=== PATIENT | female | born 2000 | race Caucasian/White ===

== ENCOUNTER 2023-04-19 21:03 | Emergency (ER) | payer OTHER ==
[2023-04-19 21:12] VITALS: BP 138/62; PULSE 98; RESP 18; TEMP 98.1; BMI 31.2
[2023-04-19] MEDS ORDERED: ACETAMINOPHEN 325 MG TABLET (FP) PO ONE (21:27)
[2023-04-19] MEDS ORDERED: SODIUM CHLORIDE 0.9% 500 ML INFUS.BAG IV ONE (21:28)
== END 2023-04-19 21:25 | disposition left against medical advice (07) ==
LOC: JER 21:03
DX: R10.32 Left lower quadrant pain (principal)
CPT/HCPCS: 99283-25

== ENCOUNTER 2023-04-19 23:06 | Emergency (ER) | payer OTHER ==
[2023-04-19 23:16] VITALS: BP 116/68; PULSE 89; RESP 18; TEMP 98.2; BMI 31.0
[2023-04-19] MEDS ORDERED: ACETAMINOPHEN 325 MG TABLET (FP) PO ONE (23:32)
[2023-04-19] MEDS ORDERED: ACETAMINOPHEN 325 MG TABLET (FP) ONE (23:38)
[2023-04-20] MEDS ORDERED: ACETAMINOPHEN 650 MG/20.3 ML ORAL SOLUTION (CUPS) PO ONE (00:38)
[2023-04-20] MEDS ORDERED: ACETAMINOPHEN 650 MG/20.3 ML ORAL SOLUTION (CUPS) ONE (00:40)
[2023-04-20 00:46] LABS: BASO % 0.7 % (0-2.0); EOS % 1.9 % (0-4.5); HEMATOCRIT 45.7 % (32.4-45.2); HEMOGLOBIN 15.4 GM/dL (10.7-15.3); LYMPH % 36.1 % (8-40); MCH 31.7 pg (25.7-33.7); MCHC 33.8 g/dl (32.0-36.0); MEAN CELL VOLUME 93.9 fl (80-96); MEAN PLT VOLUME 9.2 fl (7.5-11.1); MONO % 5.1 % (3.8-10.2); NEUT % 56.2 % (42.8-82.8); PLATELET COUNT 246 10^3/uL (134-434); RBC 4.86 M/mm3 (3.60-5.2); RDW 13.3 % (11.6-15.6); WHITE BLOOD COUNT 11.2 K/mm3 (4.0-10.0)
[2023-04-20 00:50] LABS: EPI CELLS >36 /uL (0-25.1); HYALINE CASTS 3 /uL (0-3.1); URINE APPEARANCE TURBID; URINE BACTERIA 517 /uL (0-1359); URINE BILIRUBIN NEGATIVE (NEGATIVE); URINE COLOR YELLOW; URINE GLUCOSE (UA) NEGATIVE (NEGATIVE); URINE KETONE TRACE (NEGATIVE); URINE LEUK ESTERASE TRACE (NEGATIVE); URINE NITRITE NEGATIVE (NEGATIVE); URINE PROTEIN TRACE (NEGATIVE); URINE WBC 15 /uL (0-25.8)
[2023-04-20] MEDS ORDERED: METOCLOPRAMIDE HCL INJECTION 10 MG/2 ML VIAL IVPUSH ONE (01:04)
[2023-04-20] MEDS ORDERED: LACTATED RINGERS SOLUTION 1000 ML INFUS.BAG IV ONE (01:04)
[2023-04-20] MEDS ORDERED: METOCLOPRAMIDE HCL INJECTION 10 MG/2 ML VIAL ONE (01:14)
[2023-04-20 01:16] LABS: POTASSIUM 4.3 mmol/L (3.5-5.1)
[2023-04-20 01:18] LABS: ALBUMIN 3.9 g/dl (3.4-5.0); BLOOD UREA NITROGEN 10.2 mg/dL (7-18); CALCIUM 9.8 mg/dL (8.5-10.1)
[2023-04-20] MEDS ORDERED: KETOROLAC TROMETHAMINE 15 MG/ML VIAL IVPUSH ONE (01:20)
[2023-04-20 01:22] LABS: CREATININE 0.6 mg/dL (0.55-1.3)
[2023-04-20 01:24] LABS: BILIRUBIN,TOTAL 0.2 mg/dL (0.2-1); TOT PROT 7.4 g/dl (6.4-8.2)
[2023-04-20] MEDS ORDERED: KETOROLAC TROMETHAMINE 15 MG/ML VIAL ONE (01:58)
[2023-04-20 07:44] LABS: URINE RBC PRESENT /uL (0-23.9)
== END 2023-04-20 02:03 | disposition home or self-care (01) ==
LOC: JER 23:06
PROC: 3E033NZ Introduction of Analgesics, Hypnotics, Sedatives into Peripheral Vein, Percutaneous Approach (ICD-10-PCS; principal; 2023-04-20)
PROC: 3E033GC Introduction of Other Therapeutic Substance into Peripheral Vein, Percutaneous Approach (ICD-10-PCS; 2023-04-20)
DX: R10.32 Left lower quadrant pain (principal); N83.202 Unspecified ovarian cyst, left side
CPT/HCPCS: 36415; 76830-TC; 80053; 81003; 84703; 85025; 87086; 99284-25

== ENCOUNTER 2023-11-25 11:44 | Emergency (ER) | payer OTHER ==
[2023-11-25 11:53] VITALS: BP 116/75; PULSE 88; RESP 18; TEMP 97.4; BMI 29.9
[2023-11-25 13:13] LABS: BASO % 0.5 % (0-2.0); EOS % 0.6 % (0-4.5); HEMATOCRIT 43.8 % (32.4-45.2); MCH 32.2 pg (25.7-33.7); MCHC 34.2 g/dl (32.0-36.0); MEAN CELL VOLUME 94.2 fl (80-96); MEAN PLT VOLUME 9.1 fl (7.5-11.1); MONO % 5.3 % (3.8-10.2); NEUT % 69.6 % (42.8-82.8); PLATELET COUNT 265 10^3/uL (134-434); RBC 4.65 M/mm3 (3.60-5.2); RDW 13.1 % (11.6-15.6); WHITE BLOOD COUNT 8.4 K/mm3 (4.0-10.0)
[2023-11-25 13:29] LABS: POTASSIUM 5.6 mmol/L (3.5-5.1)
[2023-11-25 13:32] LABS: ALBUMIN 3.5 g/dl (3.4-5.0); BLOOD UREA NITROGEN 5.1 mg/dL (7-18)
[2023-11-25 13:35] LABS: CREATININE 0.5 mg/dL (0.55-1.3)
[2023-11-25 13:36] LABS: BILIRUBIN,TOTAL 0.4 mg/dL (0.2-1); TOT PROT 7.9 g/dl (6.4-8.2)
[2023-11-25 14:01] LABS: HCG,QUALITATIVE URINE Positive; PH,URINE 5.5 (5.0-8.0); URINE APPEARANCE CLOUDY; URINE BILIRUBIN NEGATIVE (NEGATIVE); URINE COLOR YELLOW; URINE GLUCOSE (UA) NEGATIVE (NEGATIVE); URINE KETONE NEGATIVE (NEGATIVE); URINE LEUK ESTERASE NEGATIVE (NEGATIVE); URINE NITRITE NEGATIVE (NEGATIVE); URINE PROTEIN NEGATIVE (NEGATIVE); URINE UROBILINOGEN 0.2 mg/dL (0.2-1.0)
[2023-11-25] MEDS ORDERED: ACETAMINOPHEN 650 MG/20.3 ML ORAL SOLUTION (CUPS) PO ONE (15:02)
[2023-11-25] MEDS ORDERED: ACETAMINOPHEN 650 MG/20.3 ML ORAL SOLUTION (CUPS) ONE (16:26)
== END 2023-11-25 17:18 | disposition home or self-care (01) ==
LOC: JER 11:44
DX: O26.891 Other specified pregnancy related conditions, first trimester (principal); R10.2 Pelvic and perineal pain; Z3A.01 Less than 8 weeks gestation of pregnancy
CPT/HCPCS: 36415; 76817-TC; 80053; 81003; 84702; 84703; 85025; 87086; 99284-25

== ENCOUNTER 2023-12-07 21:22 | Emergency (ER) | payer OTHER ==
[2023-12-07 21:27] VITALS: BP 121/67; RESP 18; TEMP 97.8; BMI 27.9
[2023-12-07] MEDS ORDERED: ACETAMINOPHEN 1000 MG/100 ML BAG IVPB ONE (22:02)
[2023-12-07] MEDS ORDERED: SODIUM CHLORIDE 1,000 ML IV STA (22:02)
[2023-12-07] MEDS ORDERED: ACETAMINOPHEN INJECTION 100 ML IVPB ONE (23:02)
[2023-12-08 00:15] VITALS: PULSE 92
== END 2023-12-08 00:16 | disposition home or self-care (01) ==
LOC: JER 21:22
PROC: 3E033NZ Introduction of Analgesics, Hypnotics, Sedatives into Peripheral Vein, Percutaneous Approach (ICD-10-PCS; principal; 2023-12-07)
PROC: 3E0337Z Introduction of Electrolytic and Water Balance Substance into Peripheral Vein, Percutaneous Approach (ICD-10-PCS; 2023-12-07)
DX: O99.891 Other specified diseases and conditions complicating pregnancy (principal); R51.9 Headache, unspecified; O98.511 Other viral diseases complicating pregnancy, first trimester; U07.1 COVID-19; Z3A.01 Less than 8 weeks gestation of pregnancy
CPT/HCPCS: 0241U-QW; 36415; 76817-TC; 84702; 99284-25

== ENCOUNTER 2025-02-21 12:19 | Emergency (ER) | payer OTHER ==
[2025-02-21 12:32] VITALS: BP 119/68; PULSE 85; RESP 18; TEMP 98.6; BMI 21.2
[2025-02-21] MEDS ORDERED: KETOROLAC TROMETHAMINE 30 MG/1 ML VIAL ONE (13:48)
[2025-02-21] MEDS ORDERED: METOCLOPRAMIDE HCL INJECTION 10 MG/2 ML VIAL ONE (13:48)
[2025-02-21] MEDS: KETOROLAC TROMETHAMINE 30 MG/1 ML VIAL IVPUSH ONE (14:18)
[2025-02-21] MEDS: SODIUM CHLORIDE 0.9% 500 ML INFUS.BAG IV ONE (14:18)
[2025-02-21] MEDS: METOCLOPRAMIDE HCL INJECTION 10 MG/2 ML VIAL IVPB ONE (14:18)
[2025-02-21] MEDS: guaiFENesin/D-METHORPHAN HB 10 ML UNIT-DOSE CUPS PO ONE (14:34)
[2025-02-21] MEDS ORDERED: guaiFENesin/D-METHORPHAN HB 10 ML UNIT-DOSE CUPS ONE (14:35)
[2025-02-21 15:08] LABS: ABSOLUTE IMMATURE GRANULOCYTES 0.01 x10^3/uL (0.0-0.031); BASOPHILS # 0.02 x10^3/uL (0.01-0.08); EOSINOPHIL % 1.5 % (0.7-5.8); EOSINOPHILS # 0.09 x10^3/uL (0.04-0.36); HEMATOCRIT 46.3 % (34.1-44.9); HEMOGLOBIN 15.2 g/dL (11.2-15.7); MCHC 32.8 g/dl (32.2-35.5); MEAN CELL VOLUME 96.9 fl (79.4-94.8); MEAN PLT VOLUME 11.5 fl (9.4-12.3); MONOCYTE # 0.43 x10^3/uL (0.24-0.86); PLATELET COUNT 198 x10^3/uL (182-369); RDW 12.2 % (12.1-16.5)
[2025-02-21 15:28] LABS: CALCIUM 9.3 mg/dL (8.5-10.1)
[2025-02-21 15:29] LABS: ALBUMIN 3.8 g/dl (3.4-5.0); BLOOD UREA NITROGEN 8.9 mg/dL (7-18)
[2025-02-21 15:32] LABS: CREATININE 0.6 mg/dL (0.55-1.3)
[2025-02-21 15:34] LABS: BILIRUBIN,TOTAL 0.4 mg/dL (0.2-1); TOT PROT 7.6 g/dl (6.4-8.2)
== END 2025-02-21 16:02 | disposition home or self-care (01) ==
LOC: JER 12:19
PROC: 3E0333Z Introduction of Anti-inflammatory into Peripheral Vein, Percutaneous Approach (ICD-10-PCS; principal; 2025-02-21)
PROC: 3E033GC Introduction of Other Therapeutic Substance into Peripheral Vein, Percutaneous Approach (ICD-10-PCS; 2025-02-21)
DX: R07.89 Other chest pain (principal); R05.9 Cough, unspecified; J31.0 Chronic rhinitis; R09.81 Nasal congestion; M79.10 Myalgia, unspecified site; G89.29 Other chronic pain
CPT/HCPCS: 0241U-QW; 36415; 71046-TC-FY; 80053; 84484; 84703; 85025; 93005; 93010; 99285-25